=== PATIENT | male | born 1955 | race Caucasian/White ===

== ENCOUNTER 2025-05-13 14:08 | Observation (INO) | payer MEDICARE, OTHER ==
[2025-05-13 15:55] VITALS: BMI 24.9
[2025-05-13] MEDS ORDERED: Acetaminophen 325 MG TAB PO PRN (17:20)
[2025-05-14 05:11] LABS: #Basophils 0.04 10x3/uL (0.0-0.2); #Eosinophils 0.62 10x3/uL (0.0-0.5); #Monocytes 1.18 10x3/uL (0.0-1.1); #Neutrophils 3.98 10x3/uL (1.5-8.4); %Basophils 0.5 % (0.0-2.0); %Eosinophils 7.2 % (0.0-6.0); %Lymphocytes 32.2 % (18.0-47.0); %Monocytes 13.7 % (0.0-10.0); %Neutrophils 46.2 % (40.0-75.0); Hematocrit 35.7 % (38.8-50.0); Hemoglobin 11.6 g/dL (13.5-17.5); Mean Corpuscular Hemoglobin 32.5 pg (27.0-33.0); Mean Corpuscular Volume 100.0 fL (81.2-95.1); Platelet Count 227 10x3/uL (150-450); Red Blood Cell (RBC) Count 3.57 10x6/uL (4.32-5.72); White Blood Cell (WBC) Count 8.61 10x3/uL (3.5-10.5)
[2025-05-14 05:27] LABS: Anion Gap 11 mmol/L (10-20); BUN (Urea Nitrogen) 20 mg/dL (8.4-25.7); Calc. Creatinine Clearance 94 mL/min (70-130); Calcium 8.7 mg/dL (7.8-10.44); Carbon Dioxide 26 mmol/L (23-31); Cardiac Risk 4.2 (Less than 4.5); Chloride 109 mmol/L (98-107); Cholesterol 182 mg/dl (< 200 Desired); Glucose 102 mg/dL (80-115); HDL Cholesterol 43 mg/dL (>60 Neg Risk); LDL Cholesterol, Calculated 123 mg/dL; Potassium 4.2 mmol/L (3.5-5.1); Sodium 142 mmol/L (136-145); Triglycerides 80 mg/dL (Less than 150)
[2025-05-14] MEDS: Folic Acid 1 MG TAB PO SCH (08:14)
[2025-05-14] MEDS: Lisinopril 20 MG TAB PO SCH (08:14)
[2025-05-14] MEDS: Aspirin 81 mg Enteric Coated Tablet PO SCH (08:14)
[2025-05-14] MEDS: PNEUMOC 20-VAL CONJ-DIP CRM/PF 0.5 ML SYRINGE IM ONE (08:15)
[2025-05-14 12:52] VITALS: TEMP 97.1
[2025-05-14 16:22] VITALS: BP 193/89
== END 2025-05-14 18:45 | disposition home or self-care (01) ==
LOC: CSHTELE 15:21
PROVIDERS: ADMIT Student in an Organized Health Care Education/Training Program; ATTEND Student in an Organized Health Care Education/Training Program
DX: I63.9 Cerebral infarction, unspecified (principal); I10 Essential (primary) hypertension; Z79.82 Long term (current) use of aspirin; Z79.899 Other long term (current) drug therapy; Z88.8 Allergy status to other drugs, medicaments and biological substances
CPT/HCPCS: 70551; 80048; 80061; 82607; 83036; 84443; 85025; 93005; 93306; 93880; J7030 ×2; 36415; 93010